=== PATIENT | female | born 1935 | race Caucasian/White ===

== ENCOUNTER 2017-01-08 07:22 | Emergency (ER) | payer MEDICARE, OTHER ==
[2017-01-08 08:42] LABS: Urine Bacteria Absent (Absent); Urine Bilirubin Negative (Negative); Urine Glucose Negative (Negative); Urine Nitrite Negative (Negative)
--- NOTE | 2017-01-08 08:43 | RAD ---
CLINICAL HISTORY: Left flank pain COMPARISON: None TECHNIQUE: Multiple contiguous axial CT scans were obtained of the abdomen and pelvis, without intravenous contrast enhancement. Coronal and sagittal multiplanar reformations are submitted for review. Oral contrast was not administered. FINDINGS: The study is limited by the lack of intravenous contrast. This limits evaluation of the solid organs and vasculature. LUNG BASES: The lung bases are clear. LIVER: The liver is normal in shape, size, contour, and attenuation. BILE DUCTS: There is no intrahepatic or extrahepatic biliary dilatation. GALLBLADDER: The gallbladder is normal, without pericholecystic inflammatory change. PANCREAS: The pancreas is normal, without mass or ductal dilatation. SPLEEN: Normal in size and appearance. UPPER GI TRACT: Evaluation of the gastrointestinal tract is limited by incomplete gastric distention. The upper GI tract is unremarkable. SMALL BOWEL AND MESENTERY: The small bowel is normal in contour, course, and caliber. There is no obstruction or dilatation. COLON: The colon is normal in contour, course, caliber. There is no pericolonic inflammatory change. ADRENALS: Normal bilaterally. KIDNEYS: The kidneys are normal in shape, size, contour, and axis. There is no hydronephrosis or nephrolithiasis. BLADDER: The bladder is incompletely distended but is grossly normal. PELVIC ORGANS: The pelvic organs are not visualized. AORTA: The aorta is normal. IVC: Unremarkable LYMPH NODES: There is no lymphadenopathy by size criteria. ABDOMINAL WALL: There is no evidence for abdominal wall hernia. BONES AND SOFT TISSUES: There is diffuse osteopenia. Degenerative changes are noted of the spine. OTHER: None IMPRESSION: NO APPRECIABLE HYDRONEPHROSIS OR NEPHROLITHIASIS.
[2017-01-08 09:33] VITALS: BP 138/75
--- NOTE | 2017-01-08 10:54 | ED ---
I, Xavier,Josse, scribed for Marlo Pierce MD on 01/08/17 at 0807 . Abdominal Pain/Female - HPI Summary HPI Summary: This 81 y/o female presents to ED for intermittent LLQ pain and back pain since a week ago. Positive constipation. APAP makes the pain better. She reports trouble sleeping last night due to pain. Pt was previously evaluated and diagnosed with bladder infection with increased urgency. Pt is currently on macrobid since 5 days ago. PMHx includes HTN, hysterectomy, and recently diagnosed bladder infection. Plan of care involving CT imaging studies, and pt is agreeable. - History of Current Complaint Chief Complaint: EDAbdPain Stated Complaint: LOWER ABD/BACK PAIN Time Seen by Provider: 01/08/17 07:54 Hx Obtained From: Patient, Family/Financial Services Intern - female family member/friend present at bedside Onset/Duration: Gradual Onset, Still Present Timing: Hours Pain Intensity: 6 Pain Scale Used: 0-10 Numeric Location: Discrete At: LLQ Radiates: No Character: Dull Aggravating Factor(s): Nothing Alleviating Factor(s): Nothing Associated Signs and Symptoms: Positive: Back Pain, Constipation, Urinary Symptoms - increased urinary urgency Allergies/Adverse Reactions: Allergies Allergy/AdvReac Type Severity Reaction Status Date / Time Penicillins Allergy Rash Verified 01/08/17 07:31 Home Medications: Home Medications Metoprolol Succinate XL TAB* [Toprol XL TAB*] 1 tab PO DAILY 01/08/17 [History Confirmed 01/08/17] Nitrofurantoin Monohyd Macro [Macrobid] 1 cap PO BID 01/08/17 [History Confirmed 01/08/17] Triamterene/HCTZ 37.5-25 MG* [Dyazide CAP*] 1 cap PO DAILY 01/08/17 [History Confirmed 01/08/17] PMH/Surg Hx/FS Hx/Imm Hx Cardiovascular History: Reports: Hx Hypertension History: Reports: Other Problems/Disorders - Bladder infection with macrobid treatment Infectious Disease History: No Infectious Disease History: Denies: Traveled Outside the [place] in Last 30 Days - Family History Known Family History: Positive: Hypertension - Positive to father, Renal Disease - Brother had dialysis - Social History Alcohol Use: Rare Hx Substance Use: No Substance Use Type: Reports: None Hx Tobacco Use: No Smoking Status (MU): Never Smoked Tobacco Review of Systems Negative: Fever Positive: Abdominal Pain, Other - constipation Positive: urgency - increased urgency secondary to ongoing, known bladder infection. Positive: Other - back pain All Other Systems Reviewed And Are Negative: Yes Physical Exam - Summary Physical Exam Summary: Well-appearing, no pain distress, Well nourished Warm, dry, color reflects adequate perfusion Nml head/face Nml eyes Nml ENT Neck: Supple, non-tender CTA, breath sound present RRR Abd soft, NONTENDER, Bowel sounds + Nml musculoskeletal Nml neuro Nml psychiatric, affect/mood appropriate Triage Information Reviewed: Yes Vital Signs On Initial Exam: Initial Vitals Temp Pulse Resp BP Pulse Ox 98.5 F 87 16 176/73 97 01/08/17 07:24 01/08/17 07:24 01/08/17 07:24 01/08/17 07:24 01/08/17 07:24 Vital Signs Reviewed: Yes - Tiffanie Coma Scale Coma Scale Total: 15 Diagnostics - Vital Signs Vital Signs Temp Pulse Resp BP Pulse Ox 01/08/17 07:46 82 97 01/08/17 07:42 160/75 01/08/17 07:29 98.5 F 87 16 176/73 97 01/08/17 07:24 98.5 F 87 16 176/73 97 - Laboratory Lab Results: Lab Results 01/08/17 Range/Units 08:10 Urine Color Yellow Urine Appearance Clear Urine pH 7.0 (5-9) Ur Specific [place] 1.011 (1.010-1.030) Urine Protein Negative (Negative) Urine Ketones Negative (Negative) Urine Blood Negative (Negative) Urine Nitrate Negative (Negative) Urine Bilirubin Negative (Negative) Urine Urobilinogen Negative (Negative) Ur Leukocyte Esterase 1+ H (Negative) Urine WBC (Auto) Trace(0-5/hpf) (Absent) Urine RBC (Auto) Trace(0-2/hpf) (Absent) Ur Squamous Epith Cells Present H (Absent) Urine Bacteria Absent (Absent) Hyaline Casts Present H (Absent) Urine Glucose Negative (Negative) Lab Statement: Any lab studies that have been ordered have been reviewed, and results considered in the medical decision making process. - CT AB/P CT Interpretation: No Acute Changes - No appreciable hydronephrosis or nephrolithiasis. CT Interpretation Completed By: Radiologist Re-Evaluation - Re-Evaluation First Eval Re-Evaluation Time: 09:38 Comment: MD in room to update pt on CT imaging and UA. Pt is agreeable to discharge. Abdominal Pain Fem Course/Dx - Course Course Of Treatment: Ms. Vera has had LLQ pain on and off for a long time. It was particularily bad last evening but is now improved. She is currently being treated for a UTI and she was R/O's for a stone. - Diagnoses Provider Diagnoses: Abdominal pain Discharge - Discharge Plan Condition: Stable Disposition: HOME Patient Education Materials: Abdominal Pain (ED) Referrals: Martinez Dumont MD [Primary Care Provider] - 2 Days The documentation as recorded by the Xavier wolff Soohyun accurately reflects the service I personally performed and the decisions made by me, Marlo Pierce MD.
== END 2017-01-08 09:48 | disposition home or self-care (01) ==
LOC: ED 07:22
DX: R10.32 Left lower quadrant pain (principal); N39.0 Urinary tract infection, site not specified; I10 Essential (primary) hypertension; Z88.0 Allergy status to penicillin
CPT/HCPCS: 74176; 81003; 81015; 87086; 99282

== ENCOUNTER 2021-09-16 18:27 | Inpatient (IN) ==
[2021-09-16 20:57] LABS: Hematocrit 31 % (35-47); Hemoglobin 10.7 g/dL (12.0-16.0); Mean Corpuscular HGB Conc 35 g/dL (31-36); Mean Corpuscular Hemoglobin 29 pg (27-31); Mean Corpuscular Volume 84 fL (80-97); Red Blood Count 3.68 10^6 /uL (3.70-4.87); Red Cell Distribution Width 14 % (10-15)
[2021-09-16 21:03] LABS: Activated Partial Thrombo Time 29.6 seconds (26.0-38.0); INR 1.26 (0.86-1.15)
[2021-09-16 21:11] LABS: ABS Lymphocytes 0.8 10^3/ul (1.0-4.8); ABS Neutrophils 2.1 10^3/ul (1.5-7.7); Eosinophil % 0.4 %; Lymphocyte % 27.4 %; Mean Platelet Volume 8.4 fL (7.4-10.4); Platelet Count 96 10^3/uL (150-450)
[2021-09-16 21:18] LABS: Albumin 3.6 g/dL (3.2-5.2); Albumin/Globulin Ratio 2.1 (1-3); C Reactive Protein 68.19 mg/L (<8.01); Calcium 7.8 mg/dL (8.6-10.3); Globulin 1.7 g/dL (2-4); Potassium 4.2 mmol/L (3.5-5.0); Total Bilirubin 0.7 mg/dL (0.2-1.0); Total Protein 5.3 g/dL (6.4-8.9); eGFR CKD-EPI 63.9 (>60)
[2021-09-16] MEDS ORDERED: Vancomycin 1,250 MG in NS 0.9% 250 ml 250 ML IVPB ONE (21:54)
[2021-09-16] MEDS ORDERED: Enoxaparin 60 MG/0.6 ML SYR SUBCUT ONE (21:55)
[2021-09-16] MEDS ORDERED: Cefepime 2 GM in Dextrose 2 GM/50 ML BAG IV ONE (21:55)
[2021-09-17 01:23] LABS: Urine Appearance Clear; Urine Bacteria Absent (Absent); Urine Bilirubin Negative (Negative); Urine Blood Negative (Negative); Urine Color Yellow; Urine Glucose Negative (Negative); Urine Ketones Negative (Negative); Urine Nitrite Negative (Negative); Urine Protein Negative (Negative); Urine Red Blood Cell Trace(0-2/hpf) (Absent); Urine Specific Gravity 1.008 (1.002-1.030); Urine Squamous Epithelial Cell Present (Absent); Urine Urobilinogen Negative (Negative); Urine White Blood Cell Trace(0-5/hpf) (Absent)
[2021-09-17] MEDS ORDERED: Heparin 5000 UNITS/ML 1 mL VIAL IV SCH (02:00)
[2021-09-17 02:17] LABS: ABS Lymphocytes 0.9 10^3/ul (1.0-4.8); ABS Neutrophils 1.9 10^3/ul (1.5-7.7); Eosinophil % 0.7 %; Hematocrit 31 % (35-47); Hemoglobin 10.7 g/dL (12.0-16.0); Lymphocyte % 31.8 %; Mean Corpuscular HGB Conc 34 g/dL (31-36); Mean Corpuscular Hemoglobin 29 pg (27-31); Mean Corpuscular Volume 85 fL (80-97); Platelet Count 94 10^3/uL (150-450); Red Blood Count 3.72 10^6 /uL (3.70-4.87); Red Cell Distribution Width 14 % (10-15); White Blood Count 2.9 10^3/uL (3.5-10.8)
[2021-09-17 02:38] LABS: eGFR CKD-EPI 69.5 (>60)
[2021-09-17] MEDS: Heparin DRIP 25,000 UNITS BAG 25,000 UNITS/500 ML BAG IV SCH ×2 (03:16→11:22)
[2021-09-17] MEDS ORDERED: Polyethylene Glycol 3350 17 GM PACKET PO PRN (06:13)
[2021-09-17] MEDS ORDERED: Lactated Ringers 1000 ml BAG 1,000 ML IV ONE (07:14)
[2021-09-17] MEDS ORDERED: Artificial Tear OPHTH.OINT 3.5 GM BOTH EYES PRN (07:15)
[2021-09-17] MEDS ORDERED: Vancomycin 1,000 MG in NS 0.9% 250 ml 250 ML IVPB ONE (07:56)
[2021-09-17] MEDS ORDERED: Vancomycin per Pharmacy 1 EA NOTE FOLLOW UP SCH (08:00)
[2021-09-17] MEDS: Polyethylene Glycol 3350 17 GM PACKET PO SCH (08:27)
[2021-09-17] MEDS: metroNIDAZOLE IV 500 MG/100ML 500 MG/100 ML BAG IVPB SCH ×2 (08:27→17:19)
[2021-09-17] MEDS: cefTRIAXone 1 gm/50 mL D5W 1 GM/50 ML BAG IV SCH (10:23)
[2021-09-17] MEDS ORDERED: Iohexol 350 (CONTRAST) 500 ML MDV IV ONE (17:42)
[2021-09-17] MEDS: Senna TAB 8.6 mg TAB PO SCH (21:58)
[2021-09-17] MEDS: Vancomycin 1000 MG in NS 0.9% 250 ML IVPB SCH (21:58)
[2021-09-18] MEDS: metroNIDAZOLE IV 500 MG/100ML 500 MG/100 ML BAG IVPB SCH ×4 (00:31→23:53)
[2021-09-18 06:24] LABS: Hematocrit 29 % (35-47); Hemoglobin 9.9 g/dL (12.0-16.0); Mean Corpuscular HGB Conc 34 g/dL (31-36); Mean Corpuscular Hemoglobin 29 pg (27-31); Mean Corpuscular Volume 85 fL (80-97); Mean Platelet Volume 8.8 fL (7.4-10.4); Platelet Count 110 10^3/uL (150-450); Red Blood Count 3.46 10^6 /uL (3.70-4.87); Red Cell Distribution Width 14 % (10-15); White Blood Count 1.7 10^3/uL (3.5-10.8)
[2021-09-18 06:30] LABS: ABS Lymphocytes 0.7 10^3/ul (1.0-4.8); ABS Neutrophils 0.9 10^3/ul (1.5-7.7); Eosinophil % 2.4 %; Lymphocyte % 43.2 %; Nucleated Red Blood Cells % 0.1
[2021-09-18] MEDS: cefTRIAXone 1 gm/50 mL D5W 1 GM/50 ML BAG IV SCH (10:33)
[2021-09-18] MEDS: Heparin DRIP 25,000 UNITS BAG 25,000 UNITS/500 ML BAG IV SCH (11:10)
[2021-09-18] MEDS ORDERED: Perflutren Lipid Microsphere 3 ML VIAL ONE (12:06)
[2021-09-18] MEDS: Polyethylene Glycol 3350 17 GM PACKET PO SCH (13:33)
[2021-09-18] MEDS: Vancomycin 1000 MG in NS 0.9% 250 ML IVPB SCH (20:00)
[2021-09-18] MEDS: Senna TAB 8.6 mg TAB PO SCH (20:01)
[2021-09-19 06:06] LABS: Hematocrit 28 % (35-47); Hemoglobin 9.5 g/dL (12.0-16.0); Mean Corpuscular HGB Conc 35 g/dL (31-36); Mean Corpuscular Hemoglobin 29 pg (27-31); Mean Corpuscular Volume 84 fL (80-97); Mean Platelet Volume 8.3 fL (7.4-10.4); Platelet Count 117 10^3/uL (150-450); Red Blood Count 3.28 10^6 /uL (3.70-4.87); Red Cell Distribution Width 14 % (10-15); White Blood Count 1.2 10^3/uL (3.5-10.8)
[2021-09-19 06:17] LABS: ABS Lymphocytes 0.6 10^3/ul (1.0-4.8); ABS Neutrophils 0.5 10^3/ul (1.5-7.7); Eosinophil % 0.9 %; Lymphocyte % 51.9 %; Nucleated Red Blood Cells % 0.1
[2021-09-19 07:37] LABS: Magnesium 1.7 mg/dL (1.9-2.7); Potassium 3.8 mmol/L (3.5-5.0)
[2021-09-19 07:47] LABS: eGFR CKD-EPI 68.5 (>60)
[2021-09-19] MEDS: metroNIDAZOLE IV 500 MG/100ML 500 MG/100 ML BAG IVPB SCH ×2 (09:10→15:57)
[2021-09-19] MEDS: Polyethylene Glycol 3350 17 GM PACKET PO SCH (09:13)
[2021-09-19] MEDS ORDERED: Magnesium Sulfate IV 3 GM in NS 0.9% 100 ml BAG 100 ML IVPB ONE (09:25)
[2021-09-19] MEDS ORDERED: Magnesium Sulfate 2 GM IV (Premix) IVPB ONE (10:00)
[2021-09-19] MEDS: cefTRIAXone 1 gm/50 mL D5W 1 GM/50 ML BAG IV SCH (10:38)
[2021-09-19] MEDS ORDERED: Magnesium Sulfate 1 GM IV 1 GM/100 ML BAG IV ONE (11:00)
[2021-09-19] MEDS ORDERED: Vancomycin Trough Check NOTE FOLLOW UP ONE (20:30)
[2021-09-19] MEDS: Senna TAB 8.6 mg TAB PO SCH (20:42)
[2021-09-20 06:27] LABS: Hematocrit 29 % (35-47); Mean Corpuscular HGB Conc 35 g/dL (31-36); Mean Corpuscular Hemoglobin 29 pg (27-31); Mean Corpuscular Volume 84 fL (80-97); Mean Platelet Volume 7.7 fL (7.4-10.4); Platelet Count 127 10^3/uL (150-450); Red Blood Count 3.42 10^6 /uL (3.70-4.87); Red Cell Distribution Width 15 % (10-15); White Blood Count 1.1 10^3/uL (3.5-10.8)
[2021-09-20 07:00] LABS: Calcium 7.9 mg/dL (8.6-10.3); Magnesium 2.1 mg/dL (1.9-2.7); Potassium 3.8 mmol/L (3.5-5.0); eGFR CKD-EPI 59.1 (>60)
[2021-09-20 07:45] LABS: ABS Lymphocytes 0.8 10^3/ul (1.0-4.8); ABS Monocytes 0.1 10^3/ul (0-0.8); ABS Neutrophils 0.2 10^3/ul (1.5-7.7); Eosinophil % 0.6 %; Lymphocyte % 69.5 %
[2021-09-20] MEDS: cefTRIAXone 1 gm/50 mL D5W 1 GM/50 ML BAG IV SCH (10:18)
[2021-09-20] MEDS: Polyethylene Glycol 3350 17 GM PACKET PO SCH (11:04)
[2021-09-20] MEDS: Cefepime 2 GM in Dextrose 2 GM/50 ML BAG IV SCH ×2 (11:05→21:58)
[2021-09-20] MEDS: Senna TAB 8.6 mg TAB PO SCH (20:18)
[2021-09-21 06:36] LABS: Hematocrit 31 % (35-47); Hemoglobin 10.6 g/dL (12.0-16.0); Mean Corpuscular HGB Conc 35 g/dL (31-36); Mean Corpuscular Hemoglobin 30 pg (27-31); Mean Corpuscular Volume 85 fL (80-97); Mean Platelet Volume 8.2 fL (7.4-10.4); Platelet Count 114 10^3/uL (150-450); Red Blood Count 3.59 10^6 /uL (3.70-4.87); Red Cell Distribution Width 14 % (10-15); White Blood Count 1.8 10^3/uL (3.5-10.8)
[2021-09-21 06:55] LABS: Calcium 8.1 mg/dL (8.6-10.3); Magnesium 1.8 mg/dL (1.9-2.7); Potassium 3.9 mmol/L (3.5-5.0); eGFR CKD-EPI 65.7 (>60)
[2021-09-21 06:57] LABS: ABS Neutrophils 0.8 10^3/ul (1.5-7.7)
[2021-09-21 06:58] LABS: ABS Lymphocytes 0.8 10^3/ul (1.0-4.8); ABS Monocytes 0.2 10^3/ul (0-0.8); Eosinophil % 0.9 %; Lymphocyte % 44.7 %; Nucleated Red Blood Cells % 0.2
[2021-09-21] MEDS ORDERED: Magnesium Sulfate 2 gm BAG 2 GM/50 ML BAG IVPB ONE (07:28)
[2021-09-21] MEDS: Polyethylene Glycol 3350 17 GM PACKET PO SCH (09:53)
[2021-09-21] MEDS: Cefepime 2 GM in Dextrose 2 GM/50 ML BAG IV SCH ×2 (09:53→11:23)
[2021-09-21 14:27] VITALS: BP 154/58
== END 2021-09-21 16:35 | disposition home or self-care (01) | DRG 314 ==
LOC: ED 18:27 → SUATTDRO 09-17 02:07 → MED 09-17 02:07
PROVIDERS: ADMIT Internal Medicine; ATTEND Internal Medicine

== ENCOUNTER 2022-08-19 14:05 | Inpatient (IN) ==
[2022-08-19] MEDS ORDERED: Lactated Ringers SEPSIS* BAG 1,850 ML IV ONE (14:15)
[2022-08-19] MEDS ORDERED: Iodixanol (CONTRAST) 320 MG/ML 100 ML SDV IV ONE (15:13)
[2022-08-19 15:34] LABS: ABS Lymphocytes 0.7 10^3/ul (1.0-4.8); ABS Monocytes 0.2 10^3/ul (0-0.8); Eosinophil % 0.1 %; Hematocrit 30 % (35-47); Hemoglobin 9.6 g/dL (12.0-16.0); Lymphocyte % 7.8 %; Mean Corpuscular HGB Conc 32 g/dL (31-36); Mean Corpuscular Hemoglobin 27 pg (27-31); Mean Corpuscular Volume 84 fL (80-97); Mean Platelet Volume 8.8 fL (7.4-10.4); Platelet Count 177 10^3/uL (150-450); Red Blood Count 3.59 10^6 /uL (3.70-4.87); Red Cell Distribution Width 24 % (10-15); White Blood Count 8.9 10^3/uL (3.5-10.8)
[2022-08-19 15:48] LABS: Activated Partial Thrombo Time 37.9 seconds (26.0-38.0); INR 2.42 (0.88-1.18)
[2022-08-19 16:13] LABS: Albumin 3.6 g/dL (3.2-5.2); Albumin/Globulin Ratio 1.7 (1-3); C Reactive Protein 54.49 mg/L (<8.01); Calcium 8.3 mg/dL (8.6-10.3); Creatinine, Serum 1.14 mg/dL (0.51-0.95); Globulin 2.1 g/dL (2-4); Potassium 4.6 mmol/L (3.5-5.0); Total Bilirubin 0.9 mg/dL (0.2-1.0); Total Protein 5.7 g/dL (6.4-8.9); eGFR CKD-EPI 47.2 (>60)
[2022-08-19 17:27] LABS: Urine Appearance Clear; Urine Bilirubin Negative (Negative); Urine Blood 3+ (Negative); Urine Color Yellow; Urine Glucose Negative (Negative); Urine Ketones Negative (Negative); Urine Nitrite Negative (Negative); Urine Protein 2+(100 mg/dL) (Negative); Urine Specific Gravity 1.045 (1.002-1.030); Urine Urobilinogen Negative (Negative)
[2022-08-19 17:31] LABS: Urine Bacteria Absent (Absent); Urine Red Blood Cell 3+(>10/hpf) (Absent); Urine Squamous Epithelial Cell Present (Absent); Urine White Blood Cell 1+(6-10/hpf) (Absent)
[2022-08-19 18:17] LABS: High Sensitivity Troponin 1 Hr 17 pg/mL (<15)
[2022-08-19] MEDS ORDERED: NS 0.9% 1000 ml BAG 1,000 ML IV SCH (18:45)
[2022-08-19] MEDS: Cefepime 1 GM in Dextrose 1 GM/50 ML BAG IV SCH (21:13)
[2022-08-20] MEDS: Cefepime 1 GM in Dextrose 1 GM/50 ML BAG IV SCH (04:57)
[2022-08-20 12:31] LABS: TSH Ultra Thyroid Stim Horm 0.73 mcIU/mL (0.34-5.60)
[2022-08-20] MEDS ORDERED: Lactated Ringers 1000 ml BAG 1,000 ML IV ONE (13:50)
[2022-08-21] MEDS ORDERED: Gadoteridol (CONTRAST) 279.3 MG/ML 10 ML IV ONE (12:03)
[2022-08-22 05:42] LABS: ABS Lymphocytes 0.4 10^3/ul (1.0-4.8); ABS Monocytes 0.2 10^3/ul (0-0.8); ABS Neutrophils 2.5 10^3/ul (1.5-7.7); Hematocrit 25 % (35-47); Hemoglobin 8.4 g/dL (12.0-16.0); Lymphocyte % 13.4 %; Mean Corpuscular HGB Conc 33 g/dL (31-36); Mean Corpuscular Hemoglobin 28 pg (27-31); Mean Corpuscular Volume 85 fL (80-97); Platelet Count 161 10^3/uL (150-450); Red Blood Count 2.98 10^6 /uL (3.70-4.87); Red Cell Distribution Width 23 % (10-15); White Blood Count 3.1 10^3/uL (3.5-10.8)
[2022-08-22 06:13] LABS: Calcium 8.1 mg/dL (8.6-10.3); Creatinine, Serum 1.01 mg/dL (0.51-0.95); Potassium 4.3 mmol/L (3.5-5.0); eGFR CKD-EPI 54.6 (>60)
[2022-08-22] MEDS ORDERED: Lactated Ringers 1000 ml BAG 1,000 ML IV ONE (12:00)
[2022-08-22] MEDS ORDERED: Iodixanol (CONTRAST) 320 MG/ML 100 ML SDV IV ONE (13:21)
[2022-08-22 18:16] VITALS: BP 184/79
== END 2022-08-22 19:05 | disposition home or self-care (01) | DRG 54 ==
LOC: EDHOLD 14:05 → ED 14:05 → SUATTDRO 18:39 → MEDTELE 08-20 21:36
PROVIDERS: ADMIT Internal Medicine; ATTEND Internal Medicine